=== PATIENT | female | born 1960 | race American Indian/Alaskan Native ===

== ENCOUNTER 2016-08-21 18:43 | Emergency (ER) | payer OTHER, MEDICARE ==
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
[2016-08-22] MEDS ORDERED: TORADOL IM ONE (00:03)
[2016-08-22] MEDS ORDERED: FLEXERIL PO ONE (00:03)
[2016-08-22 03:06] VITALS: BP 129/80
== END 2016-08-22 01:05 | disposition home or self-care (01) ==
LOC: ED 18:43
DX: M79.1 Myalgia (principal); I50.9 Heart failure, unspecified; E11.9 Type 2 diabetes mellitus without complications; K21.9 Gastro-esophageal reflux disease without esophagitis; J44.9 Chronic obstructive pulmonary disease, unspecified; Z90.711 Acquired absence of uterus with remaining cervical stump; V43.52XA Car driver injured in collision with other type car in traffic accident, initial encounter; Y93.89 Activity, other specified; Y92.89 Other specified places as the place of occurrence of the external cause; Y99.8 Other external cause status
CPT/HCPCS: 96372; 99282; J1885

== ENCOUNTER 2017-06-10 11:50 | Outpatient (CLI) | payer MEDICARE ==
--- NOTE | 2017-06-10 12:12 | XRay Report ---
RIGHT RIBS, 3 VIEWS: History: Fall with right chest wall pain. Routine views of the rib cage demonstrate normal mineralization with no significant contour abnormalities, fractures or destructive lesions. PA view of the chest demonstrates no underlying cardiopulmonary abnormalities, fluid or pneumothorax. IMPRESSION: No displaced right rib fracture is detected on x-ray.
== END 2017-06-10 11:51 | disposition home or self-care (01) ==
LOC: XRAY 11:50
PROVIDERS: ATTEND Specialist
DX: R07.89 Other chest pain (principal); W19.XXXA Unspecified fall, initial encounter; Y93.89 Activity, other specified; Y92.89 Other specified places as the place of occurrence of the external cause; Y99.8 Other external cause status

== ENCOUNTER 2017-07-03 12:25 | Outpatient (CLI) | payer MEDICARE ==
--- NOTE | 2017-07-03 14:12 | Cat Scan Report ---
CT CHEST WITHOUT CONTRAST: HISTORY: Pulmonary fibrosis. COMPARISON: 01/13/12. TECHNIQUE: Helical CT in 1.25mm intervals without IV contrast. Sagittal and coronal reformatted images. FINDINGS: Thyroid gland: Normal. Tracheobronchial tree: There is mild traction bronchiectasis in both lower lobes. Esophagus: Normal. Heart: Normal. Pericardium: Normal. Mediastinum: Multiple enlarged mediastinal lymph nodes have developed since the previous exam. An anterior mediastinal lymph node measures 2.5 x 1.3 cm. A right paratracheal lymph node measures 2.5 x 1.5 cm. A left paratracheal lymph node measures 1.9 x 1.4 cm. Lung Taylor: Moderate paraseptal emphysematous changes are again identified in the upper lobes. Volume loss and fibrotic changes are also noted in the lower lobes. These findings are unchanged since 2012. No evidence for mass, nodule or infiltrate. Pleural Spaces: Normal. Musculoskeletal: Normal. IMPRESSION: Moderate paraseptal emphysematous changes with fibrotic changes in the lower lung zones which are unchanged since 2012. There is new mediastinal adenopathy of uncertain origin. Neoplastic process cannot be excluded. No pulmonary masses detected.
== END 2017-07-03 12:26 | disposition home or self-care (01) ==
LOC: CT 12:25
PROVIDERS: ATTEND Specialist
DX: J44.9 Chronic obstructive pulmonary disease, unspecified (principal); J84.10 Pulmonary fibrosis, unspecified; R59.1 Generalized enlarged lymph nodes
CPT/HCPCS: 71250

== ENCOUNTER 2017-08-01 10:33 | Outpatient (CLI) | payer MEDICARE ==
--- NOTE | 2017-08-04 10:32 | Mammography Report ---
BONE DEXA:08/01/17 10:33:00 CLINICAL: Postmenopausal. No comparison. TECHNIQUE: Two site bone DEXA performed on an Hologic scanner. FINDINGS: The average BMD of the lumbar spine L1-L4 is 0.819g/cm squared with a T-score of -2.1 and a Z-score of -1.8. The average BMD of the right hip is 0.780g/cm squared with a T-score of -1.3 and a Z-score of is 1.0. IMPRESSION: WHO classification: Osteopenia with increased fracture risk based on L-spine and right hip measurements. RECOMMENDATION: Clinical correlation and routine screening. DEFINITIONS: BMD = Bone Mineral Density T-score = BMD related to mean peak bone mass of young adult (mean expressed in Standard Deviation) Z-score = Age matched BMD expressed in SD World Health Organization (WHO) Diagnostic Criteria Normal T-score > -1 SD Osteopenia T-score between -1 and -2.4 SD Osteoporosis T-score -2.5 SD or below NOTE: BMD is not the only risk factor for fracture. One should also consider factors such as the patient's age, risk of falling, previous osteoporotic fracture, family history of osteoporotic fractures, current smoker, and low body weight. Z-scores are not calculated if >80 years of age.
== END 2017-08-01 10:34 | disposition home or self-care (01) ==
LOC: MAMMO 10:33
PROVIDERS: ATTEND Internal Medicine Rheumatology
DX: M85.88 Other specified disorders of bone density and structure, other site (principal); M81.0 Age-related osteoporosis without current pathological fracture; Z78.0 Asymptomatic menopausal state
CPT/HCPCS: 77080

== ENCOUNTER 2017-08-28 12:12 | Outpatient (CLI) | payer MEDICARE ==
--- NOTE | 2017-09-01 10:46 | PET Report ---
PET SB TO MT INITIAL: HISTORY: Mediastinal adenopathy initial staging. TECHNIQUE: 13.1 millicuries F-18 FDG was administered intravenously. Noncontrast CT images and PET images were obtained from the skull base to the proximal thighs. Fused images were reviewed on a workstation. The patient's blood glucose level measured 108. COMPARISON: CT chest without contrast dated 07/03/17. FINDINGS: BRAIN: physiologic FDG uptake in the imaged brain. NECK: physiologic FDG uptake. MEDIASTINUM: The previously described enlarged mediastinal lymph nodes seen on CT chest dated 07/03/17 have decreased in size by approximately 25-50% since the previous exam. For instance, a right paratracheal lymph node has decreased from 2.5 x 1.5 cm to 1.6 x 1.4 cm. A precarinal lymph node has decreased from 1.7 x 1.6 cm to 1.2 x 0.9 cm. An anterior mediastinal lymph node has decreased from 2.5 cm x 1.3 cm to 2.4 x 1.2 cm. No new lymph nodes are identified. Max SUV within these lymph nodes is within normal limits ranging 2.0-2.4. LUNGS: physiologic FDG uptake. Moderate paraseptal emphysematous changes in the upper lung zones and prominent interstitium in the lower lung zones are again noted and unchanged. No pulmonary mass is detected. PLEURA/PERICARDIUM: physiologic FDG uptake. THORACIC LYMPH NODES: physiologic FDG uptake. No enlarged lymph nodes outside of the mediastinum are appreciated. HEPATOBILIARY: physiologic FDG uptake. Mean liver SUV measures 4.2. PANCREAS: physiologic FDG uptake. SPLEEN: physiologic FDG uptake. ADRENAL GLANDS: physiologic FDG uptake. KIDNEYS/RENAL COLLECTING SYSTEMS: physiologic FDG uptake. BOWEL/MESENTERY: physiologic FDG uptake. PELVIC VISCERA: physiologic FDG uptake. Hysterectomy changes. The ovaries are unremarkable. ABDOMINAL/PELVIC LYMPH NODES: physiologic FDG uptake. No enlargement. MUSCULOSKELETAL: physiologic FDG uptake. IMPRESSION: Negative PET/CT. The mediastinal lymph nodes have decreased in size since 07/03/17 CT chest without contrast. No abnormal hypermetabolic activity is identified on pet imaging. Consider followup CT chest with contrast in 6 months.
== END 2017-08-28 12:13 | disposition home or self-care (01) ==
LOC: PET 12:12
PROVIDERS: ATTEND Specialist
DX: R59.0 Localized enlarged lymph nodes (principal); R79.89 Other specified abnormal findings of blood chemistry
CPT/HCPCS: 78815; 82962; A9552

== ENCOUNTER 2017-11-03 11:53 | Emergency (ER) | payer MEDICARE, OTHER ==
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
[2017-11-03 19:00] VITALS: BP 129/77
== END 2017-11-03 19:50 | disposition home or self-care (01) ==
LOC: ED 11:53
DX: S39.012A Strain of muscle, fascia and tendon of lower back, initial encounter (principal); I50.9 Heart failure, unspecified; E11.9 Type 2 diabetes mellitus without complications; K21.9 Gastro-esophageal reflux disease without esophagitis; J44.9 Chronic obstructive pulmonary disease, unspecified; Z90.710 Acquired absence of both cervix and uterus; Z88.0 Allergy status to penicillin; Z88.8 Allergy status to other drugs, medicaments and biological substances; Z88.6 Allergy status to analgesic agent; Z88.1 Allergy status to other antibiotic agents; Z91.040 Latex allergy status; V89.2XXA Person injured in unspecified motor-vehicle accident, traffic, initial encounter; Y93.89 Activity, other specified; Y92.488 Other paved roadways as the place of occurrence of the external cause; Y99.8 Other external cause status
CPT/HCPCS: 72100; 72131; 99284

== ENCOUNTER 2018-01-07 11:44 | Outpatient (CLI) | payer MEDICARE ==
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
== END 2018-01-07 11:45 | disposition home or self-care (01) ==
LOC: XRAY 11:44
PROVIDERS: ATTEND Family Medicine
DX: J84.10 Pulmonary fibrosis, unspecified (principal); I11.0 Hypertensive heart disease with heart failure; I50.9 Heart failure, unspecified; E11.43 Type 2 diabetes mellitus with diabetic autonomic (poly)neuropathy; J43.9 Emphysema, unspecified; M06.9 Rheumatoid arthritis, unspecified; K21.9 Gastro-esophageal reflux disease without esophagitis; Z90.710 Acquired absence of both cervix and uterus
CPT/HCPCS: 71046

== ENCOUNTER 2018-07-07 09:10 | Outpatient (CLI) | payer MEDICARE ==
--- NOTE | 2018-07-07 11:29 | Cat Scan Report ---
PROCEDURE: CT CHEST WO CON TECHNIQUE: TECHNIQUE: Computerized axial tomography of the chest was performed without contrast laurie tran. This study is performed without intravenous contrast and the sensitivity for pathology, includi ng neoplasms, adenopathy, abscess, pulmonary embolism and aortic dissection, is reduced. Coronal charleen nstructed imaging provided. CT DOSE LENGTH PRODUCT: 917.1 mGy-cm. HISTORY: Sarcoidosis, Systemic lupus erythematosus, COPD COMPARISONS: CT chest July 03, 2017. FINDINGS: Mild to moderate paraseptal emphysema primarily in both upper lungs. Both lower lungs demonstrated in the posterior aspect interseptal thickening with areas of groundglass opacities. Traction bronchiect asis is identified. Minimal honeycombing noted. No centrilobular nodules. Mild scattered areas of min imal scarring noted. No pneumothorax. No large consolidation. No endobronchial lesions. Prominent main, right, and left pulmonary arteries. Suspect hypertension or pulmonary vascular conges tion. Hypertension favored. No aneurysm. Major branch arteries are within normal limits. No significant atherosclerotic disease. Ccui-yb-mjnejska cardiomegaly. Trace pericardial effusion may be physiologic. Coronary artery disease is not clearly evident. A few prominent subcentimeter right axillary lymph nodes identified with one of the larger lymph node s in short axis diameter measuring 6.4 mm. Similar finding noted on the left axilla with one of the p rominent lymph nodes measuring 6.2 mm. Prominent mediastinal subcentimeter lymph nodes identified wit h one of the larger lymph nodes measuring 11 mm in short axis diameter. No prominent hilar lymph node s noted. No mediastinal or hilar mass. Limited images of the thyroid gland are unremarkable. Limited images of the esophagus are unremarkable. Bones: No suspicious osseous lesions on this limited examination of the skeleton. Metastatic disease better evaluated with bone scan. Degenerative changes are present in the spine. IMPRESSION: * Comparison with prior will be made as an addendum once requested prior images and report are provi ded. * Emphysema. * Possibly fibrosis in both lower lungs may be related to stage IV sarcoidosis. * Prominent pulmonary arteries suggests pulmonary arterial hypertension. * Nonspecific mildly prominent bilateral axillary and mediastinal lymph nodes. This document is electronically signed by Jesus Gore MD., July 07 2018 11:27:39 AM ET
== END 2018-07-07 09:11 | disposition home or self-care (01) ==
LOC: CT 09:10
PROVIDERS: ATTEND Internal Medicine Pulmonary Disease
DX: J43.9 Emphysema, unspecified (principal); M32.9 Systemic lupus erythematosus, unspecified; D86.9 Sarcoidosis, unspecified; I11.0 Hypertensive heart disease with heart failure; I50.9 Heart failure, unspecified; E11.43 Type 2 diabetes mellitus with diabetic autonomic (poly)neuropathy; Z90.710 Acquired absence of both cervix and uterus
CPT/HCPCS: 71250

== ENCOUNTER 2018-10-21 11:36 | Outpatient (CLI) | payer MEDICARE ==
--- NOTE | 2018-10-21 13:05 | Mammography Report ---
BONE DEXA. History: Postmenopausal. Procedure: 2 site bone densitometry performed on a Hologic scanner. Comparison: 08/01/2017 Findings: The BMD of the lumbar spine is 0.789 gm/cm2 with a T-score of -2.3 and a Z score of -2.0. This peng res to 0.819 gm/cm2 on the last exam and represents a -3.7% change. The bone mineral density (BMD) of the right femoral neck is 0.725 gm/cm2 with a T-score of -1.1 and a Z score of -0.7. The BMD of the total right hip is 0.802 gm/cm2 with a T-score of 1.1 and a Z score of -0.9. This compares to 0.780gm/cm2 on the last exam and represents a +2.7% change. Impression: WHO Classification: Osteopenia with increased fracture risk based on lumbar spine measurements. WHO classification: Osteopenia with increased fracture risk based onright hip measurements. The FRAX 10 year fracture probability for a major osteoporotic fracture is +2.6%. The FRAX 10 year fracture probability for hip fracture is +0.1%. Note:FRAX version 3.01. Fracture probability calculated for an untreated patient. Fracture probabilit y may be lower if the patient has received treatment. RECOMMENDATION: Clinical correlation and routine screening. Definitions: BMD = Bone Mineral Density T score = BMD related to mean peak bone mass of young adult (Dickson expressed an standard deviation) Z score = Age-matched BMD expressed in SD World health organization (WHO) diagnostic criteria: Normal: T score greater than -1 SD. Osteopenia: T score between - SD and -2.4 SD. Osteoporosis: T score -2.5 SD or below Note: BMD is not the only risk factor for fracture; also consider factors such as the patient's age, risk of falling, previous osteoporotic fracture, family history of osteoporotic fractures, smoking st atus and low body weight. All treatment decisions require clinical judgment and consideration of individual patient factors inc luding patient preferences, comorbidities, previous drug use and risk factors not captured in the FRA X model (e.g. Frailty, falls, vitamin D deficiency, increased bone turnover, interval significant dec line in BMD). A more detailed DEXA Bone Densitometry report is available upon request. Signer Name: Bronson Langley MD Signed: 10/21/2018 1:01 PM Workstation Name: [id number]
== END 2018-10-21 11:37 | disposition home or self-care (01) ==
LOC: MAMMO 11:36
PROVIDERS: ATTEND Internal Medicine Rheumatology
DX: M85.88 Other specified disorders of bone density and structure, other site (principal); M81.0 Age-related osteoporosis without current pathological fracture; Z78.0 Asymptomatic menopausal state
CPT/HCPCS: 77080

== ENCOUNTER 2021-11-08 09:07 | Outpatient (CLI) | payer MEDICARE ==
--- NOTE | 2021-11-08 10:38 | Mammography Report ---
DEXA BONE DENSITY SCAN INDICATION / CLINICAL INFORMATION: 81.0 OSTEOPEROSIS. 61 years Female COMPARISON: 10/21/2018. LUMBAR SPINE, L1-L4: - Bone mineral density (BMD) = 0.822 g/cm2. - T-score = -2.0 - Change (%) since most recent prior (if available): +4.3 RIGHT HIP, TOTAL : - Bone mineral density (BMD) = 0.764 g/cm2. - T-score = -1.5 - Change (%) since most recent prior (if available): -4.7 IMPRESSION: 1. WHO Classification: Osteopenia. Fracture Risk: Increased. 2. 10-Year Fracture Risk (FRAX) = Major Osteoporotic 3.2% / Hip: 0.2% FRAX generally not reported for patients with normal or osteoporotic BMD, in yuf-[id number]-[id number] baldo ents younger than age 50, or in patients undergoing pharmacotherapy BMD Reporting Guidelines (ISCD, 2015) BMD Reporting in Postmenopausal Women and in Men Age 50 and Older - T-scores are preferred. - The WHO densitometric classification is applicable. BMD Reporting in Females Prior to Menopause and in Males Younger Than Age 50 - Z-scores, not T-scores, are preferred. This is particularly important in children. - A Z-score of -2.0 or lower is defined as below the expected range for age, and a Z-score above -2.0 is within the expected range for age. - Osteoporosis cannot be diagnosed in men under age 50 on the basis of BMD alone. - The WHO diagnostic criteria may be applied to women in the menopausal transition. http://www.iscd.org/official-positions/8006-pdhz-zgqbmnuc-positions-adult/ Signer Name: Alex Cantrell MD Signed: 11/08/2021 10:34 AM Workstation Name: Education [employer]
== END 2021-11-08 09:08 | disposition home or self-care (01) ==
LOC: MAMMO 09:07
PROVIDERS: ATTEND Internal Medicine Rheumatology
DX: M81.0 Age-related osteoporosis without current pathological fracture (principal)
CPT/HCPCS: 77080